=== PATIENT | male | born 1965 | race Caucasian/White ===

== ENCOUNTER 2018-12-09 04:52 | Inpatient (IN) | payer SELFPAY ==
[~2018-12-09] VITALS: Ht 177.8 cm; Wt 90.7 kg
[2018-12-09 05:04] VITALS: Ht 177.8 cm; Wt 90.7 kg
[2018-12-09 05:31] LABS: BASOPHIL % 0.4 % (0-2); PLATELET COUNT 196 x10^3mcL (130-400); RED CELL DISTRIBUTION WIDTH 13.6 % (11.5-14.5)
[2018-12-09 05:50] LABS: CARBON DIOXIDE 27.5 mmol/L (21-32); CHLORIDE SERUM 104 mmol/L (98-107); CREATININE SERUM 0.7 mg/dL (0.7-1.3); GFR1 > 60 mL/min; GLUCOSE SERUM 132 mg/dL (74-106); POTASSIUM SERUM 3.4 mmol/L (3.5-5.1); SODIUM SERUM 139 mmol/L (136-145)
[2018-12-09 05:55] LABS: ALBUMIN 3.4 g/dL (3.4-5.0); ALKALINE PHOSPHATASE 78 U/L (46-116); ALT/SGPT 28 U/L (16-63); AST/SGOT 23 U/L (15-37); BILIRUBIN TOTAL 0.44 mg/dL (0.20-1.00); TOTAL PROTEIN, SERUM 6.2 g/dL (6.4-8.2)
[2018-12-09] MEDS ORDERED: METOPROLOL SUC100 M2 PO (06:46)
[2018-12-09 08:07] VITALS: BP 120/80
[2018-12-09 08:38] LABS: MAGNESIUM 1.9 mg/dL (1.8-2.4); PHOSPHOROUS 3.9 mg/dL (2.5-4.9)
[2018-12-09 09:48] LABS: CHOLESTEROL/HDL RATIO 1.9
[2018-12-09 16:45] VITALS: BP 119/74
[2018-12-09 21:31] VITALS: BP 122/71
[2018-12-10 06:00] VITALS: BP 135/70
[2018-12-10 06:42] LABS: BASOPHIL % 0.4 % (0-2); PLATELET COUNT 194 x10^3mcL (130-400); RED CELL DISTRIBUTION WIDTH 13.9 % (11.5-14.5)
[2018-12-10 06:58] LABS: CALCIUM 7.4 mg/dL (8.5-10.1); CHLORIDE SERUM 107 mmol/L (98-107); CREATININE SERUM 0.6 mg/dL (0.7-1.3); GFR1 > 60 mL/min; GLUCOSE SERUM 108 mg/dL (74-106); SODIUM SERUM 141 mmol/L (136-145)
[2018-12-10 09:03] VITALS: BP 121/62
[2018-12-10 12:01] VITALS: BP 123/71
[2018-12-10 17:03] VITALS: BP 123/66
[2018-12-10 20:43] VITALS: BP 111/63
[2018-12-11 05:13] VITALS: BP 114/72
[2018-12-11 06:39] LABS: BASOPHIL % 0.5 % (0-2); PLATELET COUNT 178 x10^3mcL (130-400); RED CELL DISTRIBUTION WIDTH 13.7 % (11.5-14.5)
[2018-12-11 06:58] LABS: CALCIUM 7.7 mg/dL (8.5-10.1); CARBON DIOXIDE 27.4 mmol/L (21-32); CHLORIDE SERUM 105 mmol/L (98-107); CREATININE SERUM 0.7 mg/dL (0.7-1.3); GFR1 > 60 mL/min; GLUCOSE SERUM 148 mg/dL (74-106); POTASSIUM SERUM 4.2 mmol/L (3.5-5.1); SODIUM SERUM 139 mmol/L (136-145)
[2018-12-11 09:21] VITALS: BP 112/61
[2018-12-11] MEDS ORDERED: BIA500 PO (10:09)
[2018-12-11] MEDS ORDERED: AMO500 PO (10:10)
[2018-12-11] MEDS ORDERED: PRI20 PO (10:13)
[2018-12-11 13:17] VITALS: BP 106/69
[2018-12-11 14:21] VITALS: BP 106/69
== END 2018-12-11 15:05 | disposition home or self-care (01) | DRG 394 ==
LOC: ED 04:52 → MU 06:41 → DU 06:41 → MU 07:45 → DU 11:09
PROVIDERS: Internal Medicine Gastroenterology; ADMIT General Practice
PROC: 0DB68ZX Excision of Stomach, Via Natural or Artificial Opening Endoscopic, Diagnostic (ICD-10-PCS; principal; 2018-12-10 09:00)
PROC: 0DJD8ZZ Inspection of Lower Intestinal Tract, Via Natural or Artificial Opening Endoscopic (ICD-10-PCS; 2018-12-10 09:00)
DX: K62.6 Ulcer of anus and rectum (principal); K62.5 Hemorrhage of anus and rectum; E87.6 Hypokalemia; E83.51 Hypocalcemia; I10 Essential (primary) hypertension; Z88.5 Allergy status to narcotic agent; Z79.899 Other long term (current) drug therapy
CPT/HCPCS: 43235; 45378; 87804; 90658; C9113; G0378; J0696; J1200; J1610; J2250; J2310; J3010; J3490; J7030; Q9967